=== PATIENT | female | born 1995 | race Caucasian/White ===

== ENCOUNTER 2018-07-03 17:22 | Inpatient (IN) ==
--- NOTE | 2018-07-04 00:09 | ED ---
HPI General Chief Complaint: Psychiatric Symptoms Stated Complaint: psych eval Time Seen by Provider: 07/03/18 19:34 Source: patient Mode of arrival: ambulatory Limitations: no limitations History of Present Illness HPI Narrative: 23-year-old female requesting psychiatric evaluation. Patient states that she has suicidal ideation and has plan for that. Patient has history of suicidal ideation in the past. Patient has been seen by psychiatrist at [facility] previously. Patient also has history of PTSD, panic attack and dysthymic disorder. Patient denies any alcohol or illicit drug abuse. Patient denies any medical problems. Patient came to ED and fell and complains of right knee pain. Patient denies any other injury. MD complaint: Reports suicidal ideation Onset (ago): year(s) Duration: constant History of same: Yes Relieving factors: none Exacerbating factors: none Associated psychiatric symptoms: Reports none Treatments prior to arrival: Reports none If self harm: admits thoughts of self harm Related Data Home Medications Medication Instructions Recorded Confirmed No Known Home Medications 07/03/18 07/03/18 Allergies Allergy/AdvReac Type Severity Reaction Status Date / Time No Known Allergies Allergy Verified 07/03/18 17:30 Review of Systems ROS: all other systems reviewed are negative [facility] Medical History Medical History Patient denies medical problems (Acute) Surgical History Surgical History No history of previous surgery (Acute) Social History Social History Substance History: No History of Abuse Second Hand Smoke Exposure: No Smoking Status: Never smoker How Often Do You Have a Drink Containing Alcohol: Never Recent Travel in [facility] within the Last 8 Weeks: No Recent Out of Country Travel within the Last 8 Weeks: No Immunization History Tetanus Immunization: <5 Years Exam Narrative Exam Narrative: GENERAL: Well-nourished, well-developed patient. SKIN: Focused skin assessment warm/dry. HEAD: Normocephalic. EYES: No scleral icterus. No injection or drainage. NECK: Supple, trachea midline. No JVD or lymphadenopathy. CARDIOVASCULAR: Regular rate and rhythm without murmurs, gallops, or rubs. RESPIRATORY: Breath sounds equal bilaterally. No accessory muscle use. GASTROINTESTINAL: Abdomen soft, non-tender, nondistended. MUSCULOSKELETAL: No cyanosis, or edema. BACK: Nontender without obvious deformity. No CVA tenderness. Patient has minor abrasion prepatellar area of the right knee. Mild tenderness on palpation prepatellar area of the right knee. Knee joint stable. No effusion noted. Course Initial Documented Vital Signs Temperature 98.4 F 07/03/18 17:25 Pulse Rate 103 H 07/03/18 17:25 Respiratory Rate 18 07/03/18 17:25 Blood Pressure 173/98 H 07/03/18 17:25 Pulse Oximetry 97 07/03/18 17:25 Last Documented Vital Signs Temperature 98.6 F 07/04/18 17:10 Pulse Rate 78 07/04/18 17:10 Respiratory Rate 18 07/04/18 17:10 Blood Pressure 168/102 H 07/04/18 17:10 Pulse Oximetry 97 07/04/18 17:10 Medical Decision Making MDM Narrative Medical decision making narrative: 33-year-old female requesting psychiatry evaluation for her suicidal ideation. Patient also felt today and injured the right knee. 1:13 AM. Patient is medically cleared for psychiatric evaluation. Medical Screen Exam Complete: Yes Emergency Medical Condition: Yes Differential Diagnosis Differential Diagnosis: Differential diagnosis including knee contusion, fracture, dislocation, suicidal ideation. Lab Data Lab results reviewed: Yes I reviewed the patient's lab results. Result diagrams: 07/04/18 00:05 07/04/18 00:05 POC Results POC Urine Results Negative Lab Results 07/04/18 07/04/18 07/04/18 Range/Units 00:05 00:05 00:24 WBC 10.3 (4.0-11.0) th/mm3 RBC 4.42 (4.00-5.30) mil/mm3 Hgb 13.1 (11.6-15.3) gm/dL Hct 38.6 (35.0-46.0) % MCV 87.4 (80.0-100.0) fL MCH 29.7 (27.0-34.0) pg MCHC 34.0 (32.0-36.0) % RDW 14.7 (11.6-17.2) % Plt Count 343 (150-450) th/mm3 MPV 7.8 (7.0-11.0) fL Neut % (Auto) 72.0 H (16.0-70.0) % Lymph % (Auto) 21.7 (9.0-44.0) % [place] % (Auto) 5.8 (0.0-8.0) % Eos % (Auto) 0.2 (0.0-4.0) % Baso % (Auto) 0.3 (0.0-2.0) % Neut # (Auto) 7.4 (1.8-7.7) th/mm3 Lymph # (Auto) 2.2 (1.0-4.8) th/mm3 [place] # (Auto) 0.6 (0.0-0.9) th/mm3 Eos # (Auto) 0.0 (0.0-0.4) th/mm3 Baso # (Auto) 0.0 (0.0-0.2) th/mm3 WBC Differential . Differential Comment Auto diff final Sodium 141 (136-145) meq/L Potassium 3.7 (3.5-5.1) meq/L Chloride 108 H (98-107) meq/L Carbon Dioxide 25.6 (21.0-32.0) meq/L Anion Gap 7 (5-15) meq/L BUN 8 (7-18) mg/dL Creatinine 0.57 (0.50-1.00) mg/dL Estimated GFR Greater than 89 (>89) mL/min Random Glucose 99 (74-106) mg/dL Calcium 8.6 (8.5-10.1) mg/dL Total Bilirubin 0.3 (0.2-1.0) mg/dL AST 12 L (15-37) U/L ALT 18 (10-53) U/L Alkaline Phosphatase 78 (45-117) U/L Total Protein 7.7 (6.4-8.2) g/dL Albumin 3.8 (3.4-5.0) g/dL TSH 2.570 (0.358-3.740) uIU/mL Urine Opiates Screen Neg (Neg) Ur Barbiturates Screen Neg (Neg) Ur Amphetamines Screen Neg (Neg) U Benzodiazepines Scrn Pos H (Neg) Urine Cocaine Screen Neg (Neg) U Cannabinoids Screen Pos H (Neg) Discharge Plan Discharge Disposition Patient Disposition: ED Admit(ED Internal Use Only) Discharge Condition Condition: Stable Discharge Order Discharge Orders: ED Use Only Admit Order (Routine); Ordered 07/04/18 Ordered By: Angelica Aquino Discharge Details Diagnosis: Persistent depressive disorder Physicians Team ED Provider: Gilson Farias Primary Care Provider: Gene Perry Attending Provider: Silvano Headley Status ED Status: Left Department Discharge Information Discharge Date/Time: 07/04/18 18:43
[2018-07-04 00:39] LABS: Baso % (Auto) 0.3 % (0.0-2.0); Eos % (Auto) 0.2 % (0.0-4.0); Hematocrit 38.6 % (35.0-46.0); Hemoglobin 13.1 gm/dL (11.6-15.3); Lymph # (Auto) 2.2 th/mm3 (1.0-4.8); Lymph % (Auto) 21.7 % (9.0-44.0); Mean Corpuscular Hemoglobin 29.7 pg (27.0-34.0); Mean Corpuscular Volume 87.4 fL (80.0-100.0); Mean Platelet Volume 7.8 fL (7.0-11.0); Mono # (Auto) 0.6 th/mm3 (0.0-0.9); Mono % (Auto) 5.8 % (0.0-8.0); Neut # (Auto) 7.4 th/mm3 (1.8-7.7); Platelet Count 343 th/mm3 (150-450); Red Blood Count 4.42 mil/mm3 (4.00-5.30); Red Cell Distribution Width 14.7 % (11.6-17.2); White Blood Count 10.3 th/mm3 (4.0-11.0)
[2018-07-04 00:50] LABS: Amphetamine Screen,Urine Neg (Neg); Barbiturate Screen,Urine Neg (Neg); Cannabinoid Screen,Urine Pos (Neg); Cocaine Screen,Urine Neg (Neg)
[2018-07-04 01:02] LABS: Alanine Aminotransferase 18 U/L (10-53); Albumin 3.8 g/dL (3.4-5.0); Anion Gap 7 meq/L (5-15); Aspartate Aminotransferase 12 U/L (15-37); Blood Urea Nitrogen 8 mg/dL (7-18); Calcium 8.6 mg/dL (8.5-10.1); Carbon Dioxide 25.6 meq/L (21.0-32.0); Chloride 108 meq/L (98-107); Glomerular Filtration Rate Greater Than 89 mL/min (>89); Glucose,Random 99 mg/dL (74-106); Potassium 3.7 meq/L (3.5-5.1); Sodium 141 meq/L (136-145)
[2018-07-04 01:05] LABS: Opiate Screen,Urine Neg (Neg)
[2018-07-04 01:11] LABS: Alkaline Phosphatase 78 U/L (45-117); Total Protein 7.7 g/dL (6.4-8.2)
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
[2018-07-04] MEDS ORDERED: Aluminum/Magnesium/Simethacone Susp 30 ML UDC PO PRN (16:02)
[2018-07-04] MEDS ORDERED: Acetaminophen 325 MG Tablet PO PRN (18:51)
[2018-07-05 08:43] LABS: Anion Gap 6 meq/L (5-15); Blood Urea Nitrogen 5 mg/dL (7-18); Calcium 8.8 mg/dL (8.5-10.1); Carbon Dioxide 26.9 meq/L (21.0-32.0); Chloride 106 meq/L (98-107); Cholesterol 117 mg/dL (120-200); Glomerular Filtration Rate Greater Than 89 mL/min (>89); Glucose,Random 96 mg/dL (74-106); Potassium 3.6 meq/L (3.5-5.1); Sodium 139 meq/L (136-145); Triglycerides 79 mg/dL (42-150)
[2018-07-05 08:46] LABS: Chol/HDL Ratio 2.43 Ratio; LDL Cholesterol,Calculated 53 mg/dL (0-99)
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
[2018-07-05] MEDS: Escitalopram 10 MG Tablet PO SCH (11:10)
--- NOTE | 2018-07-05 11:30 | P.CONIM ---
History of Present Illness Reason for Consult: elevated BP Primary Care Provider: Gene Perry MD History of Present Illness: This is a 23-year-old female patient with past medical history which includes suicidal ideations with previous psychiatric admissions, PTSD, panic attacks and dysthymic disorder. Patient presented to the emergency department yesterday with reported suicidal ideation. Patient is currently in inpatient psychiatric unit and we have been consulted for assistance with management of elevated blood pressure. Blood pressure has ranged from 140/83-170 . Patient reports she does not take any medications at home and is unaware of hypertension in the past. Patient does report that she has intermitted headaches. Not currently having headache. Patient denies chest pain shortness of breath nausea vomiting diarrhea constipation fevers or chills. PMH: suicidal ideations with previous psychiatric admissions, PTSD, panic attacks and dysthymic disorder PSxH: Denies prior surgeries FMH: Reviewed and noncontributory Social history Patient denies EtOH use, tobacco use or illicit drug use PMF Social History Social History Substance History: Active Abuse Second Hand Smoke Exposure: Yes Smoking Status: Current every day smoker Tobacco Type: Cigarettes How Often Do You Have a Drink Containing Alcohol: 4 or more times a week Recent Travel in [facility] within the Last 8 Weeks: No Recent Out of Country Travel within the Last 8 Weeks: No Substance Abuse Detail Marijuana: Substance Use Status: Active Route Used Substance Abuse: Inhalation Substance Frequency: daily Reason for Use: Calm Down Immunization History Tetanus Immunization: Unsure Hx Influenza Vaccine This Season: No Medications and Allergies Allergies Allergy/AdvReac Type Severity Reaction Status Date / Time No Known Allergies Allergy Verified 07/03/18 17:30 Home Medications Medication Instructions Recorded Confirmed Type No Known Home Medications 07/03/18 07/03/18 History Active Medications: Active Medications Acetaminophen (Tylenol) 650 mg PO Q4H PRN PRN Reason: PAIN 1-10 Last Admin: 07/04/18 21:14 Dose: 650 mg Al Hydrox/Mg Hydrox/Simethicone (Mag-Al Plus Susp Liq) 30 ml PO Q6H PRN PRN Reason: DYSPEPSIA Al Hydroxide/Mg Hydroxide (Milk Of Magnesia Liq) 30 ml PO Q12H PRN PRN Reason: Mild Constipation Amlodipine Besylate (Norvasc) 2.5 mg PO DAILY [facility] Escitalopram Oxalate (Lexapro) 10 mg PO DAILY [facility] Last Admin: 07/05/18 11:10 Dose: 10 mg Hydroxyzine HCl (Atarax) 50 mg PO Q6H PRN PRN Reason: anxiety, sleep Sennosides (Senokot) 17.2 mg PO Q12H PRN PRN Reason: Moderate Constipation Physical Exam Vital signs: Last Vital Signs Temp 98.2 F 07/05/18 05:01 Pulse 77 07/05/18 05:01 Resp 18 07/05/18 05:01 BP 154/91 H 07/05/18 05:01 Pulse Ox 98 07/05/18 05:01 Narrative: GENERAL: This is an obese 23 year old female, well-developed patient , in no apparent distress. CARDIOVASCULAR: Regular rate and rhythm RESPIRATORY: Clear to auscultation. Breath sounds equal bilaterally. GASTROINTESTINAL: Abdomen soft, non-tender, nondistended. Normal active bowel sounds MUSCULOSKELETAL: Extremities without clubbing, cyanosis, or edema. NEURO: Alert & Oriented x4 to person, place, time, situation. Moves all ext x4 Results Labs CBC & Chem 7: 07/04/18 00:05 07/05/18 07:54 Assessment and Plan Assessment (1) Persistent depressive disorder: Code(s): F34.1 - Dysthymic disorder Status: Acute (2) Chronic post-traumatic stress disorder (PTSD): Code(s): F43.12 - Post-traumatic stress disorder, chronic Status: Acute (3) Borderline personality disorder: Code(s): F60.3 - Borderline personality disorder Status: Acute Plan This is a 23-year-old female patient with past medical history which includes suicidal ideations with previous psychiatric admissions, PTSD, panic attacks and dysthymic disorder. Patient presented to the emergency department yesterday with reported suicidal ideation. Patient is currently in inpatient psychiatric unit and we have been consulted for assistance with management of elevated blood pressure. Blood pressure has ranged from 140/83-170 . Patient reports she does not take any medications at home and is unaware of hypertension in the past. Patient denies chest pain shortness of breath nausea vomiting diarrhea constipation fevers or chills. Depression Suicidal ideations PTSD Borderline personality disorder Management per psychiatric team Elevated blood pressure Blood pressure has ranged from 140/83-170 . Patient reports she does not take any medications at home and is unaware of hypertension in the past. We will start amlodipine 2.5 mg p.o. daily Monitor blood pressure trend Also encourage patient that healthy eating and exercise as well as weight loss will improve her overall health and blood pressure DVT prophylaxis patient is ambulatory and ambulating in halls
[2018-07-05] MEDS: amLODIPine 5 MG Tablet PO SCH (11:33)
[2018-07-05 12:48] LABS: Hemoglobin A1c 5.1 % (4.3-6.0)
[2018-07-06] MEDS: amLODIPine 5 MG Tablet PO SCH (09:05)
[2018-07-06] MEDS: Escitalopram 10 MG Tablet PO SCH (09:05)
[2018-07-07 05:26] VITALS: BP 140/80; PULSE 92; RESP 16; TEMP 98; O2SAT 99
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
[2018-07-07] MEDS: Escitalopram 10 MG Tablet PO SCH (09:36)
== END 2018-07-07 15:25 | disposition home or self-care (01) | DRG 883 ==
LOC: NEPD 17:22 → NEDA 07-04 16:07 → H260 07-04 17:48
PROVIDERS: ADMIT Psychiatry & Neurology Child & Adolescent Psychiatry; ATTEND Psychiatry & Neurology Child & Adolescent Psychiatry
DX: Z91.410 Personal history of adult physical and sexual abuse; F34.1 Dysthymic disorder; F12.90 Cannabis use, unspecified, uncomplicated; F17.210 Nicotine dependence, cigarettes, uncomplicated; Z81.8 Family history of other mental and behavioral disorders; F60.3 Borderline personality disorder; F43.12 Post-traumatic stress disorder, chronic; R45.851 Suicidal ideations; Z91.5 Personal history of self-harm